=== PATIENT | female | born 1975 ===

== ENCOUNTER → 2019-02-27 | Day surgery (SDC) | payer OTHER ==
[2019-02-26 17:22] LABS: BASOPHILS % 0.3 % (0.0-1.0); EOSINOPHILS # (AUTO) 0.3 (0.0-0.4); EOSINOPHILS % 2.1 % (0.0-6.0); LYMPHOCYTES # (AUTO) 3.8 (1.0-3.2); LYMPHOCYTES % 30.7 % (18.0-39.1); MEAN CORPUSCULAR HEMOGLOBIN 30.2 pg (28-32); MEAN CORPUSCULAR VOLUME 86.4 fL (81-99); MONOCYTES # (AUTO) 0.6 (0.2-0.8); MONOCYTES % 5.2 % (4.4-11.3); NEUTROPHILS # (AUTO) 7.5 (2.1-6.9); NEUTROPHILS % 61.5 % (38.7-80.0); PLATELET COUNT 396 x10e3/uL (140-360); RED BLOOD COUNT 4.63 x10e6/uL (3.6-5.1); RED CELL DISTRIBUTION WIDTH 11.2 % (11.7-14.4)
[2019-02-26 17:30] LABS: ANION GAP 14.8 mmol/L (8-16); BLOOD UREA NITROGEN 14 mg/dL (7-26); BUN/CREATININE RATIO 19 (6-25); CALCIUM 10.3 mg/dL (8.4-10.2); CARBON DIOXIDE 25 mmol/L (22-29); CHLORIDE 101 mmol/L (98-107); CREATININE, SERUM 0.72 mg/dL (0.57-1.11); EST GLOMERULAR FILTRATION RATE > 60 ML/MIN (60-); GLUCOSE 165 mg/dL (74-118); POTASSIUM 3.8 mmol/L (3.5-5.1); SODIUM 137 mmol/L (136-145)
[2019-02-27] VITALS (9 sets, daily range): BP systolic 120–144; BP diastolic 76–93
[~2019-02-27] VITALS: Ht 160 cm; Wt 88.9 kg
[~2019-02-27] MED LIST: ATORVASTATIN CA20 MG PO; FENTANYL CITRATE/PF 100MCG/2 ML INJ ONE; GLIMEPIRIDE2 MG PO; HEPARIN SOD/SOD CHLORIDE 2,000 ML ONE; IOPAMIDOL 370 MG/ML 200 ML INFUS..BTL INJ ONE; LIDOCAINE HCL 2% LOCAL 20 ML VIAL ONE; LISINOPRIL10 MG PO; METFORMIN HCL500 MG PO; METOPROLOL TART25 MG PO; MIDAZOLAM HCL 2 MG/2 ML VIAL ONE; ONDANSETRON HCL INJ 2MG/ML 2ML 2 MG/ML VIAL ONE
--- OUTSIDE RECORDS SUMMARY | 2019-02-27 10:13 | XMS REPORT | Encounter Summary ---
Author Organization Unknown Address [address] [place] [address] Phone [phone] Care Team Providers Care Investment Professional Name Role Phone Meredith Bo MD 3 [phone] Reason for Visit Medical Complaint Instructions 1. Low back pain back care and preventing injuries: care instructions getting back to normal after low back pain: care instructions learning about relief for back pain naproxen 500 mg tablet cyclobenzaprine 10 mg tablet Discussion Note: None recorded. Plan of Care Patient Instructions See care instructions provided. Reminders Provider Appointments None recorded. Lab None recorded. Referral None recorded. Procedures None recorded. Surgeries None recorded. Imaging None recorded. Medications Name Start Date cyclobenzaprine 10 mg tablet Take 1 tablet 3 times a day by oral route as needed. glimepiride 2 mg tablet TK 1 T PO WITH BREAKFAST losartan 50 mg-hydrochlorothiazide 12.5 mg tablet TK 1 T PO D metformin 850 mg tablet TK 1 T PO BID WITH MEALS naproxen 500 mg tablet Take 1 tablet twice a day by oral route as needed. Medications Administered None recorded. Vitals Height Weight BMI Blood Pressure 5 ft 2 in 193 lbs 35.3 kg/m2 122/80 mm[Hg] Lab Results None recorded. Allergies Code Code System Name Reaction Severity Status Onset Penicillins Active Problems Name Status Onset Date Source Hypertensive Disorder Active Procedures Date Name Performed by Cholecystectomy Information not available Information not available Vaccine List None recorded. Social History Smoking Status Never Smoker Past Encounters 09/19/2017 Low Back Pain Laura PazMARYA-C: [address] [place] [address], Ph. History of Present Illness Musculoskeletal Complaint Reported By: Patient HPI: Location: pain radiating to the legs, Location:. Quality: constant. Severity: severe (8-10). Duration: started last night. Onset/Timing: acute. Context: prior back problems. Associated Symptoms: no fever/chills, no warmth, no redness, no swelling, no drainage, no ecchymosis, no weakness, no tingling, no numbness, no radiation, no catching/locking, no popping/clicking, no buckling, no grinding, no instability, no weight loss, no change in bowel/bladder habits, no muscle aches, no headache Review of Systems:ROS as noted in the HPI Review of Systems Basic Reported By: Patient Physical Exam Adult Basic, Adult Female Complete Reported By: Patient Constitutional: General Appearance: healthy-appearing, well-nourished, well-developed. Level of Distress: NAD. Ambulation: ambulating normally Psychiatric: Mental Status: active and alert. Orientation: to time, to place, to person Eyes: Lids and Conjunctivae: non-injected, no discharge, no pallor. Pupils: PERRLA Lungs: Respiratory effort: no dyspnea, no tachypnea, no use of accessory muscles, no intercostal retractions. Auscultation: breath sounds normal Cardiovascular: Heart Auscultation: RRR, no murmurs Musculoskeletal:: Motor Strength and Tone: normal motor strength, normal tone. Joints, Bones, and Muscles: no bony abnormalities, no contractures, no malalignment, no tenderness, limited ROM. Extremities: no cyanosis, no edema, no varicosities, no palpable cord
--- OUTSIDE RECORDS SUMMARY | 2019-02-27 10:13 | XMS REPORT | Encounter Summary ---
Author Organization Unknown Address [address] [place] [address] Phone [phone] Care Team Providers Care Turpentiner Name Role Phone Meredith Bo MD 3 [phone] Reason for Visit Medical Complaint Instructions 1. Cough Bromfed DM 2 mg-30 mg-10 mg/5 mL syrup cough: care instructions Discussion Note Pt is in NAD; Verbalizes understanding of all instructions with no questions at this time. Plan of Care Patient Instructions Take fluticasone as needed for congestion. [place] one spray in each nostril twice a day. Take a warm, steamy shower, blow your nose thereafter, and spray in each nostril. Tilt your head up for about 10 seconds and breath through your mouth. Do not sniff or snort the medication in or else the medication will go to your throat and not be absorbed appropriately. Take Bromfed DM for cough as directed. Alternate with Ibuprofen and acetaminophen every 4hrs as needed for pain/fever/headache. Proper hydration and rest. Return to work/school if free of fever for 24-hrs. Do not share any utensils/cups, no kissing, recommend hand washing after coughing/sneezing/blowing nose and cover face when you do so. Take medications as prescribed. Return to clinic or follow up with your PCP within 2- 3 days if symptoms worsen as discussed. Reminders Provider Appointments None recorded. Lab None recorded. Referral None recorded. Procedures None recorded. Surgeries None recorded. Imaging None recorded. Medications Name Start Date Bromfed DM 2 mg-30 mg-10 mg/5 mL syrup Take 10 mL every 6 hours by oral route as needed for 5 days. glimepiride 2 mg tablet TK 1 T PO WITH BREAKFAST losartan 50 mg-hydrochlorothiazide 12.5 mg tablet TK 1 T PO D metformin 850 mg tablet TK 1 T PO BID WITH MEALS metoprolol succinate ER 50 mg tablet,extended release 24 hr TK 1 T PO D Medications Administered None recorded. Vitals Height Weight BMI Blood Pressure 5 ft 2 in 197 lbs 36 kg/m2 130/88 mm[Hg] Lab Results Date Name Specimen Result Interpretation Description Value Range Status Address Rapid Strep Group a, Throat Result negative [facility]: [facility] Swab Location Left and Right tonsillar pillars [facility]: [facility] Rapid Flu (A+B) Influenza a positive [facility]: [facility] Influenza B negative [facility]: [facility] Allergies Code Code System Name Reaction Severity Status Onset Penicillins Active Problems Name Status Onset Date Source Hypertensive Disorder Active Procedures Date Name Performed by Cholecystectomy Information not available Information not available Vaccine List None recorded. Social History Smoking Status Never Smoker Past Encounters 06/18/2017 Cough LAURIE Gonzales: [address] [place] [address], Ph. 06/08/2017 Influenza Due to Influenza a Virus; Fever; Sore Throat Symptom; Cough; History of Hypertension; History of Diabetes Mellitus LAURIE Chin: [address] [place] [address], Ph. History of Present Illness Cough Reported By: Patient HPI: Location: chest. Quality: productive cough, colored phlegm, congested. Duration: ; x 1-2 weeks. Severity: moderate. Onset/Timing: gradual. Context: no sick contacts, no foreign travel, non-smoker; Pt seen on 05-29-17 and diagnosed with Influenza type, started on tamiflu and benzonatate. Modifying factors: ; Benzonatate with minimal relief. Associated Symptoms: no sputum production, no shortness of breath, no wheezing, no sweats, no significant weight gain, no significant weight loss, no morning cough, no sore throat, no vomiting, no diarrhea, no rash, no nausea, no fever/chills, no muscle aches, no headache; chest congestion and productive cough Review of Systems:ROS as noted in the HPI Review of Systems Basic Reported By: Patient Physical Exam Adult Basic, Adult Female Complete Reported By: Patient Constitutional: General Appearance: healthy-appearing, well-nourished, well-developed. Level of Distress: NAD. Ambulation: ambulating normally Psychiatric: Mental Status: active and alert. Orientation: to time, to place, to person Vsf-Xkzp-Sosnf-Throat: Ears: no lesions on external ear, no outer ear tenderness, EACs clear, TMs clear. Hearing: no hearing loss. Nose: no lesions on external nose, nares patent, no septal deviation, nasal passages clear, no sinus tenderness, nasal discharge--rhinorrhea, post nasal drip. Lips, Teeth, and Gums: no mouth or lip ulcers, no bleeding gums, normal dentition. Oropharynx: moist mucous membranes, no erythema, no exudates, tonsils not enlarged Neck: Lymph Nodes: no cervical LAD Lungs: Respiratory effort: no dyspnea, no tachypnea, no use of accessory muscles, no intercostal retractions. Auscultation: breath sounds normal Cardiovascular: Heart Auscultation: RRR, no murmurs Neurologic: Gait and Station: normal gait, normal station
--- OUTSIDE RECORDS SUMMARY | 2019-02-27 10:13 | XMS REPORT ---
[facility] Address Unknown Phone Unavailable Care Team Providers Care Cook Fish And Chips Name Role Phone Unavailable Unavailable Payers Payer Name Policy Type Policy Number Effective Date Expiration Date Problems This patient has no known problems. Allergies, Adverse Reactions, Alerts Allergy Name Allergy Type Status Severity Reaction(s) Onset Date Inactive Date Treating Clinician Comments Penicillins DA Active [place] 2008-11-30 00:00:00 Medications This patient has no known medications. Encounters Start Date/Time End Date/Time Encounter Type Admission Type Attending Clinicians Care Facility Care Department Encounter ID 2019-01-22 10:47:50 Outpatient [id number]
--- OUTSIDE RECORDS SUMMARY | 2019-02-27 10:13 | XMS REPORT | Continuity of Care Document ---
Author Author [facility] Address Unknown Phone Unavailable Care Team Providers Care Assistant Professor Of Sociology Name Role Phone [email or web address] Information [employer] Unavailable Unavailable Problems Problem Status Onset Date Classification Date Reported Comments Source Low back pain 09/19/2017 Diagnosis 09/19/2017 [facility] Influenza due to Influenza A virus 06/08/2017 Diagnosis 06/18/2017 [facility] Fever 06/08/2017 Diagnosis 06/18/2017 [facility] Sore throat symptom 06/08/2017 Diagnosis 06/18/2017 [facility] Cough 06/08/2017 Diagnosis 06/18/2017 [facility] History of hypertension 06/08/2017 Diagnosis 06/18/2017 [facility] History of diabetes mellitus 06/08/2017 Diagnosis 06/18/2017 [facility] Hypertensive disorder Problem 09/19/2017 [facility] Medications Medication Details Route Status Patient Instructions Ordering Provider Order Date Source Brompheniramine Maleate 0.4 MG/ML / Dextromethorphan Hydrobromide 2 MG/ML / Pseudoephedrine Hydrochloride 6 MG/ML Oral Solution [Bromfed DM] Bromfed DM 2 mg-30 mg-10 mg/5 mL syrup Take 10 mL every 6 hours by oral route as needed for 5 days. Active [facility] glimepiride 2 MG Oral Tablet glimepiride 2 mg tablet TK 1 T PO WITH BREAKFAST Active [facility] Hydrochlorothiazide 12.5 MG / Losartan Potassium 50 MG Oral Tablet losartan 50 mg-hydrochlorothiazide 12.5 mg tablet TK 1 T PO D Active [facility] Metformin hydrochloride 850 MG Oral Tablet metformin 850 mg tablet TK 1 T PO BID WITH MEALS Active [facility] 24 HR metoprolol succinate 50 MG Extended Release Oral Tablet metoprolol succinate ER 50 mg tablet,extended release 24 hr TK 1 T PO D Active [facility] benzonatate 200 MG Oral Capsule benzonatate 200 mg capsule Take 1 capsule 3 times a day by oral route as needed. Active [facility] Cyclobenzaprine hydrochloride 5 MG Oral Tablet cyclobenzaprine 5 mg tablet TK 1 T PO BID FOR 14 DAYS PRF MUSCLE RELAXANT Active [facility] Ibuprofen 600 MG Oral Tablet ibuprofen 600 mg tablet TK 1 T PO Q 8 H PRN P. TK WF OR MILK Active [facility] Oseltamivir 75 MG Oral Capsule oseltamivir 75 mg capsule Take 1 capsule twice a day by oral route with meals for 5 days. Active [facility] tizanidine 2 MG Oral Tablet tizanidine 2 mg tablet TK 1 T PO Q 8 H PRF MUSCLE SPASM Active [facility] Cyclobenzaprine hydrochloride 10 MG Oral Tablet cyclobenzaprine 10 mg tablet Take 1 tablet 3 times a day by oral route as needed. Active [facility] Naproxen 500 MG Oral Tablet naproxen 500 mg tablet Take 1 tablet twice a day by oral route as needed. Active [facility] Allergies, Adverse Reactions, Alerts Substance Category Reaction Severity Reaction type Status Date Reported Comments Source Penicillins Allergy to substance 06/08/2017 [facility] Immunizations No Data Provided for This Section Results Order Name Results Value Reference Range Date Interpretation Comments Source RESULT negative 06/18/2017 [facility] SWAB LOCATION Left and Right tonsillar pillars 06/18/2017 [facility] Influenza A positive 06/18/2017 [facility] Influenza B negative 06/18/2017 [facility] RESULT negative 06/08/2017 [facility] SWAB LOCATION Left and Right tonsillar pillars 06/08/2017 [facility] Influenza A positive 06/08/2017 [facility] Influenza B negative 06/08/2017 [facility] Pathology Reports No Data Provided for This Section Diagnostic Reports No Data Provided for This Section Consultation Notes No Data Provided for This Section Discharge Summaries No Data Provided for This Section History and Physicals No Data Provided for This Section Vital Signs Vital Sign Value Date Comments Source Diastolic (mm Hg) 80 09/19/2017 [facility] Height 62 09/19/2017 [facility] Systolic (mm Hg) 122 09/19/2017 [facility] Weight 193 09/19/2017 [facility] Diastolic (mm Hg) 88 06/18/2017 [facility] Height 62 06/18/2017 [facility] Systolic (mm Hg) 130 06/18/2017 [facility] Weight 197 06/18/2017 [facility] Diastolic (mm Hg) 90 06/08/2017 [facility] Height 62 06/08/2017 [facility] Systolic (mm Hg) 138 06/08/2017 [facility] Weight 197 06/08/2017 [facility] Encounters Location Location Details Encounter Type Encounter Number Reason For Visit Attending Provider ADM Date DC Date Status Source [place] - [facility] - [id number] Rudiaroldo BEN SpainP-C: [address] [place] [address], Ph. [id number] Renegopal Judit 06/08/2017 [facility] [place] - [facility] - [id number] Cortez Judit, MOLD CLOSER-C: [address] [place] [address], Ph. [id number] Renegopal Judit 06/08/2017 [facility] [place] - [facility] - [id number] Meredith Wheat, MOLD CLOSER-C: [address] [place] [address], Ph. [id number] Meredith Wheat 06/18/2017 [facility] [place] - [facility] - [id number] Sarah Jackson, MOLD CLOSER-C: [address] [place] [address], Ph. [id number] Laura Paz 09/19/2017 [facility] Procedures Procedure Code Date Perfomer Comments Source Cholecystectomy [facility] Assessment and Plan No Data Provided for This Section Plan of Care No Data Provided for This Section Social History Social History Date Source Smoking Status Never Smoker 06/18/2017 [facility] Family History No Data Provided for This Section Advance Directives No Data Provided for This Section Functional Status No Data Provided for This Section
--- OUTSIDE RECORDS SUMMARY | 2019-02-27 10:13 | XMS REPORT | Encounter Summary ---
Author Organization Unknown Address [address] [place] [address] Phone [phone] Reason for Visit Medical Complaint Instructions 1. Influenza due to Influenza A virus oseltamivir 75 mg capsule 2. Fever learning about fever rapid flu (A+B) 3. Sore throat symptom sore throat: care instructions rapid strep group A, throat 4. Cough cough: care instructions benzonatate 200 mg capsule 5. History of hypertension high blood pressure: care instructions 6. History of diabetes mellitus type 2 diabetes: care instructions Discussion Note Pt is aaox3 and in NAD; verbalizes understanding of all instructions and has no further questions at this time Plan of Care Patient Instructions Take medications as prescribed and discussed; follow up with your PCP within 2-3 days or sooner should symptoms worsen. Go to the ER if you experience shortness of breath or difficulty breathing despite using medications prescribed today. Increase fluid intake, rest, humidifier, OTC flonase and antihistamine as directed and nasal rinses recommended. Reminders Provider Appointments None recorded. Lab Rapid Flu (A+B) 06/08/2017 [facility] Rapid Strep Group a, Throat 06/08/2017 [facility] Referral None recorded. Procedures None recorded. Surgeries None recorded. Imaging None recorded. Medications Name Start Date benzonatate 200 mg capsule Take 1 capsule 3 times a day by oral route as needed. cyclobenzaprine 5 mg tablet TK 1 T PO BID FOR 14 DAYS PRF MUSCLE RELAXANT glimepiride 2 mg tablet TK 1 T PO WITH BREAKFAST ibuprofen 600 mg tablet TK 1 T PO Q 8 H PRN P. TK WF OR MILK losartan 50 mg-hydrochlorothiazide 12.5 mg tablet TK 1 T PO D metformin 850 mg tablet TK 1 T PO BID WITH MEALS metoprolol succinate ER 50 mg tablet,extended release 24 hr TK 1 T PO D oseltamivir 75 mg capsule Take 1 capsule twice a day by oral route with meals for 5 days. tizanidine 2 mg tablet TK 1 T PO Q 8 H PRF MUSCLE SPASM Medications Administered None recorded. Vitals Height Weight BMI Blood Pressure 5 ft 2 in 197 lbs 36 kg/m2 138/90 mm[Hg] Lab Results Date Name Specimen Result Interpretation Description Value Range Status Address Rapid Strep Group a, Throat Result negative [facility]: [address] [place] [address] Swab Location Left and Right tonsillar pillars [facility]: [address] [place] [address] Rapid Flu (A+B) Influenza a positive [facility]: [address] [place] [address] Influenza B negative [facility]: [address] [place] [address] Allergies Code Code System Name Reaction Severity Status Onset Penicillins Active Problems Name Status Onset Date Source Hypertensive Disorder Active Procedures Date Name Performed by Cholecystectomy Information not available Information not available Vaccine List None recorded. Social History None recorded. Past Encounters 06/08/2017 Influenza Due to Influenza a Virus; Fever; Sore Throat Symptom; Cough; History of Hypertension; History of Diabetes Mellitus MARYA Chin-C: [address] [place] [address], Ph. History of Present Illness [id number]-Agvcfet Reported By: Patient HPI: Location: head/sinuses, throat. Quality: sore throat, nasal/sinus congestion, dry cough. Duration: 2days. Severity: mild. Onset/Timing: sudden. Context: no sick contacts, no foreign travel, non-smoker. Associated Symptoms: no sputum production, no shortness of breath, no wheezing, no change in number of pillows needed to sleep at night, no sweats, no significant weight gain, no significant weight loss, no vomiting, no diarrhea, no rash, no nausea, no fever, fatigue, morning cough, sore throat, fever, muscle aches, headache Review of Systems:ROS as noted in the HPI Review of Systems Basic Reported By: Patient Physical Exam Adult Basic, Adult Female Complete Reported By: Patient Constitutional: General Appearance: healthy-appearing, well-nourished, well-developed. Level of Distress: NAD Psychiatric: Mental Status: active and alert. Orientation: to time, to place, to person Cja-Rkro-Kfvwz-Throat: Ears: no lesions on external ear, no [...] erythema, no exudates, tonsils not enlarged Neck: Neck: FROM. Lymph Nodes: no cervical LAD, no supraclavicular LAD Lungs: Respiratory effort: no dyspnea, no tachypnea, no use of accessory muscles, no intercostal retractions. Auscultation: breath sounds normal Cardiovascular: Heart Auscultation: RRR, no murmurs. Neck vessels: no carotid bruits. Pulses including femoral / pedal: normal throughout Neurologic: Gait and Station: normal gait, normal station
--- NOTE | 2019-02-27 13:30 | NUR ---
1330 Bedside report received from Subhash PEGUERO. Alert oriented and appropriate, PERRLA, respirations even and unlabored to room air. Pulses x4 extremities equal and strong. Pedal pulses PT/DP x4 and Cap fill brisk < 3 sec. Left groin angio seal dry and intact no hematoma down time till 1615pm at bedside.c/o nauseated medicate with zofran 4mg ivp.Able to tolerate po snack tray later w/o problems. Back to baseline orientation. Denies CP or SOB pt completed [facility] Abdominal aortagram medical rx only. Skin warm and dry integrity appears D/I IV 20g to left AC presents healthy w/o s/s of infiltration or complaint. Abdomen soft and supple. pt offered toileting, denies need to urinate or defecate. No personal affects with patient. Family / at bedside. Pt and family verbalizes understands flat time and dc time at 415pm and f/o Dr Alvarez office 2wks.debby/gwendolyn
--- NOTE | 2019-02-27 16:15 | NUR ---
1615Pt meets DC criteria. left groin assessed for s/s of complication and presence of hematoma. skin warm, dry, no discolor, and pulses present. IV removed from left arm. Distal tip appears intact. VS WNL. Pt denies pain, sob, or need at this time. No nausea at bedside and assist to bathroom void qs and tolerated well. left groin closure site remains intact w/o hematoma or oozing.Review of discharge paperwork and follow up instructions. verbalized understanding. Pt to wheelchair and transported to front of hospital. Transferred to private vehicle under own strength w/o incident with DC paperwork in hand. ds/rn-
--- NOTE | 2019-02-28 16:39 | Operative Report ---
DATE OF PROCEDURE: 02/27/2019 SURGEON: Patricio Peck MD DIAGNOSES: 1. Angina pectoralis with abnormal EKG. 2. Hypertension. 3. Diabetes mellitus. 4. Hyperlipidemia. 5. Metabolic syndrome. INDICATIONS: This 43-year-old patient, who was recently referred by Dr. Johnson for cardiac evaluation. The patient had echocardiogram in 2018, which showed low ejection fraction in the range of 45% to 50%. The patient also has some atypical chest pain and complaining of increased heart rate and palpitations as well as shortness of breath and dyspnea on exertion. After the initial visit, the patient returned one week later to the office complaining of chest pain and having an abnormal EKG with T-wave inversion in the anteroseptal leads. The patient is now admitted for cardiac catheterization. PROCEDURE: 1. Cardiac catheterization including selective coronary angiography and left ventricular angiogram. 2. Abdominal aortography. 3. Closure of left femoral artery with Angio-Seal model VIP. ANESTHESIA: Local anesthetic to the left groin area and to moderate sedation. DESCRIPTION OF PROCEDURE: After the usual prepping and draping, local anesthetic was applied to the left inguinal area using and a micropuncture kit at first, the left femoral vein was punctured and a four-[place] venous sheath was placed in the left femoral vein. After the left femoral artery was punctured percutaneously also was using the micropuncture kit, and a six-[place] arterial sheath was placed in the left femoral artery. Selective coronary angiography was then performed by using modified Raghavendra catheter. A six-[place] pigtail catheter was utilized for recording of hemodynamics and left ventricular angiogram in the RUST projection. The pigtail catheter was utilized for abdominal aortography after it was placed at the level of the renal arteries. After review of the diagnostic studies and removal of the pigtail catheter, angiogram of the left groin area was performed prior to closure of the left femoral artery with Angio-Seal. The venous sheath was also removed in the manager laboratory area and hemostasis was achieved with manual compression. After adequate hemostasis was achieved, dressing was applied and the patient transferred to the observation area in stable condition. There were no complications and the procedure was well tolerated. FINDING OF CARDIAC CATHETERIZATION: The left ventricular pressure was 126 mmHg. Aortic pressure was 126/74 with a mean of 86 mmHg. The left ventricular end-diastolic pressure was 12 mmHg. The left main coronary artery was normal as was the left anterior descending branch and diagonal branch. The left circumflex obtuse marginal system showed a focal plaque amounting to about a 5% stenosis. The right coronary artery was a large and dominant and also showed a proximal eccentric plaque amounting to about 5% stenosis. The left ventricular angiogram showed some mild apical hypokinesis. The global ejection fraction was 55%. There was no mitral regurgitation. IMPRESSION: 1. Minimal coronary artery disease. 2. Mild left ventricular dysfunction with some mild apical hypokinesis, but global normal ejection fraction. 3. Normal abdominal aortogram. The findings were discussed with the patient and I was recommended to pursue the modification of risk factors particularly with regard to her metabolic syndrome and good control of hypertension. The patient is still complaining of increased heart rate and palpitation and she was advised to increase her metoprolol from 25 mg once daily to 25 mg twice daily. The patient will continue to be followed on medical therapy. MD LETITIA VicenteH/MODL /[id number] cc: Amara Johnson MD
== END | disposition home or self-care (01) ==
LOC: CATH LAB 10:10
PROVIDERS: ATTEND Internal Medicine Cardiovascular Disease
DX: I25.119 Atherosclerotic heart disease of native coronary artery with unspecified angina pectoris (principal); R00.2 Palpitations; I10 Essential (primary) hypertension; E78.5 Hyperlipidemia, unspecified; E88.81 Metabolic syndrome and other insulin resistance; E11.65 Type 2 diabetes mellitus with hyperglycemia; Z88.0 Allergy status to penicillin; Z01.812 Encounter for preprocedural laboratory examination; Z79.84 Long term (current) use of oral hypoglycemic drugs
CPT/HCPCS: 36415; 80048; 81025; 83036; 85025; 93458; C1760; C1766 ×2; C1769; J2001; J2250; J2405; J3010; Q9967; 75625